=== PATIENT | female | born 1975 | race Caucasian/White ===

== ENCOUNTER 2025-03-14 20:46 | Emergency (ER) | payer MEDICAID ==
[~2025-03-14] VITALS: Ht 152.4 cm; Wt 59.0 kg
[2025-03-14 20:55] VITALS: BP 180/111; PULSE 83; RESP 16; TEMP 98.2; O2SAT 98
== END 2025-03-14 22:20 | disposition left against medical advice (07) ==
LOC: ER 20:46
DX: F41.9 Anxiety disorder, unspecified (principal); Z53.21 Procedure and treatment not carried out due to patient leaving prior to being seen by health care provider
CPT/HCPCS: 99281